=== PATIENT | male | born 2000 | race Caucasian/White ===

== ENCOUNTER 2021-07-25 17:15 | Emergency (ER) | payer BC, SELFPAY ==
--- NOTE | 2021-07-25 17:16 | ED.SKABFB ---
HPI - Skin/Abscess/Foreign Bdy General Chief complaint: Skin/Abscess/Foreign Body Stated complaint: ingrown toe nail Time Seen by Provider: 07/25/21 17:17 Source: patient and RN notes reviewed History of Present Illness HPI narrative: Patient is a 21-year-old male who presents the urgent care with complaints of an ingrown toenail. Patient states he noticed it a couple days ago and it popped at the gym today. Denies of any fever, nausea, vomiting. No other complaints. No acute distress noted. Patient aware of the plan of care. Some parts of this dictation were generated by voice recognition software and may contain typographical and/or grammatical inaccuracies. Related Data Allergies Allergy/AdvReac Type Severity Reaction Status Date / Time No Known Allergies Allergy Verified 07/25/21 17:24 Review of Systems Review of Systems: CONSTITUTIONAL: Denies fever, chills, or sweats. EYES: Denies visual changes, redness, or discharge. ENT: Denies rhinorrhea, congestion, sore throat, or otalgia. CARDIOVASCULAR: Denies chest pain, palpitations, or edema. RESPIRATORY: Denies cough or dyspnea. GASTROINTESTINAL: Denies abdominal pain, nausea, vomiting, or diarrhea. GENITOURINARY: Denies dysuria or hematuria. SKIN: Reports of an ingrown toenail to the right fourth digit MUSCULOSKELETAL: Denies back pain, joint pain, or myalgia. NEUROLOGIC: Denies headache, numbness, or weakness. All other systems reviewed are negative, except as documented in HPI. PMFSH Comments At the time of my signature, I reviewed and agree with the nursing past medical, surgical, social, and family history. There is no relevant family history pertinent to the patient complaint. Exam Narrative: GENERAL: This is a well-nourished, well-developed patient, in no apparent distress. HEAD: normocephalic, atraumatic. EYES: PERRL. Sclera clear/white. Vision is grossly intact. EARS: External ears normal NOSE: External nose normal with no obvious nasal discharge, nares without redness, no rhinorrhea. THROAT: Mucous membranes moist NECK: Neck supple CARDIOVASCULAR: Regular rate and rhythm without murmurs, gallops, or rubs. RESPIRATORY: Clear to auscultation. Breath sounds equal bilaterally. No wheezes, rales, or rhonchi. SKIN: Draining paronychia with surrounding erythema on the lateral aspect of the right fourth digit NEURO: awake, alert, and oriented to person, place and time. There were no obvious focal neurologic abnormalities. EXTREMITIES: No clubbing, cyanosis, or edema. Course Vital Signs Vital signs: Vital Signs Temperature 97.7 F 07/25/21 17:24 Pulse Rate 82 07/25/21 17:24 Respiratory Rate 16 07/25/21 17:24 Blood Pressure 124/76 07/25/21 17:24 Pulse Oximetry 100 07/25/21 17:24 Temperature 97.7 F 07/25/21 17:24 Pulse Rate 82 07/25/21 17:24 Respiratory Rate 16 07/25/21 17:24 Blood Pressure 124/76 07/25/21 17:24 Pulse Oximetry 100 07/25/21 17:24 Reviewed MDM - Skin/Abscess/Foreign Bdy MDM Narrative Medical decision making narrative: Advised the patient to do plain Dial soap and water soaks at least once or twice a day. Use the prescription cream to the affected area and keep it wrapped while wearing the shoe. Keep your shoes and socks off as much as possible to allow air to the area. Complete the oral antibiotic regimen as prescribed. Be sure to eat and drink with the medication. If you develop any worsening symptoms?follow-up in the emergency room or with the referred system support specialist. Follow-up with your PCP within 2 to 5 days or for worsening symptoms or failure to improve. Differential Diagnosis Differential diagnosis: Likely abscess of skin or subcutaneous tissue, urticaria, cellulitis, eczema, insect bites and impetigo Critical Care Time Critical Care Time Critical Care Time: No Discharge Plan Discharge Clinical Impression: Paronychia of fourth toe of right foot Patient Disposition: Home, Self-Care Condition
[2021-07-25 17:24] VITALS: BP 124/76; PULSE 82; RESP 16; TEMP 36.5; O2SAT 100
== END 2021-07-25 17:34 | disposition home or self-care (01) ==
PROVIDERS: Emergency Provider Nurse Practitioner Family
DX: L03.031 Cellulitis of right toe (principal)
CPT/HCPCS: 99213; G0463